=== PATIENT | male | born 1965 | race Caucasian/White ===

== ENCOUNTER 2017-07-03 18:57 | Emergency (ER) | payer SELFPAY, OTHER ==
[2017-07-03] MEDS ORDERED: SODIUM CHLORIDE 0.9% FLUSH 10 ML FLUSH IV FLUSH (21:00)
[2017-07-03 22:02] LABS: AUTOMATED NEUTROPHIL # 2.7 TH/MM3 (1.8-7.7); BASOPHIL # 0.2 TH/MM3 (0-0.2); BASOPHIL % 1.5 % (0.0-2.0); EOSINOPHIL # 0.5 TH/MM3 (0-0.4); EOSINOPHIL % 4.8 % (0.0-4.0); HEMATOCRIT 48.6 % (39.0-51.0); HEMOGLOBIN 15.9 GM/DL (13.0-17.0); LYMPH % 61.9 % (9.0-44.0); LYMPHOCYTE # 6.9 TH/MM3 (1.0-4.8); MEAN CORPUSCULAR HEMOGLOBIN 28.8 PG (27.0-34.0); MEAN CORPUSCULAR HGB CONC 32.8 % (32.0-36.0); MEAN PLATELET VOLUME 9.4 FL (7.0-11.0); MONO % 7.6 % (0.0-8.0); MONOCYTE # 0.8 TH/MM3 (0-0.9); NEUT % 24.2 % (16.0-70.0); PLATELET COUNT 279 TH/MM3 (150-450); RED BLOOD COUNT 5.53 MIL/MM3 (4.50-5.90); RED CELL DISTRIBUTION WIDTH 13.3 % (11.6-17.2); WHITE BLOOD COUNT 11.1 TH/MM3 (4.0-11.0)
[2017-07-03] MEDS: MORPHINE SULFATE 4 MG/ML INJ IV PUSH (22:02)
[2017-07-03] MEDS: cefTRIAXone INJ 1,000 MG in SODIUM CHLORIDE 0.9% INJ 100 ML IV (22:03)
[2017-07-03 22:21] LABS: CHLORIDE 102 MEQ/L (98-107); POTASSIUM 4.1 MEQ/L (3.5-5.1); SODIUM (NA) 138 MEQ/L (136-145)
[2017-07-03 22:25] LABS: ALBUMIN 3.9 GM/DL (3.4-5.0); ANION GAP 6 MEQ/L (5-15); BICARBONATE 29.9 MEQ/L (21.0-32.0); GLUCOSE,RANDOM 91 MG/DL (74-106); LIPASE 195 U/L (73-393)
[2017-07-03 22:26] LABS: BLOOD UREA NITROGEN 11 MG/DL (7-18); HEMO FLAGS AUTO DIFF
[2017-07-03 22:28] LABS: ALT (GPT) 49 U/L (12-78); AST (GOT) 32 U/L (15-37); CREATININE 0.98 MG/DL (0.60-1.30); GLOMERULAR FILTRATION RATE 80 ML/MIN (>89)
[2017-07-03 22:30] LABS: TOTAL BILIRUBIN ADULT 0.4 MG/DL (0.2-1.0); TOTAL PROTEIN 7.3 GM/DL (6.4-8.2)
[2017-07-03 22:31] LABS: ALKALINE PHOSPHATASE 83 U/L (45-117)
[2017-07-03 22:53] LABS: BANDS 2 % (0-6); EOSINOPHILS 3 % (0-4); LYMPHOCYTES 64 % (9-44); MONOCYTES 6 % (0-8); PLATELET ESTIMATE SMEAR NORMAL (NORMAL); PLATELET MORPHOLOGY NORMAL (NORMAL); POLYS (SEG NEUTROPHILS) 25 % (16-70); WBC DIFF SAMPLE 100
[2017-07-03] MEDS: metroNIDAZOLE 500 MG INJ 100 ML IV (22:53)
[2017-07-03 22:54] LABS: SCAN/DIFF FINAL DIFF MANUAL
== END 2017-07-04 00:22 | disposition home or self-care (01) ==
LOC: PHED 07-04 00:22
DX: K52.9 Noninfective gastroenteritis and colitis, unspecified (principal); J44.9 Chronic obstructive pulmonary disease, unspecified; Z95.5 Presence of coronary angioplasty implant and graft
CPT/HCPCS: 74176; 80053; 83690; 85007; 85027; 96365; 96367; 96375; 99284-25